=== PATIENT | male | born 2000 | race African-American/Black ===

== ENCOUNTER 2023-08-05 09:10 | Emergency (ER) | payer MEDICAID, SELFPAY ==
--- NOTE | ~2023-08-05 | XR_ITS ---
EXAMINATION: Right foot and left ankle x-ray CLINICAL INFORMATION: Trauma COMPARISON: None. TECHNIQUE: 3 views of the right foot and 3 views of the left ankle FINDINGS: Right foot: Bone alignment is normal. No fracture or dislocation. Normal joint spaces. Normal soft tissues. Left ankle: Bone alignment is normal. No fracture or dislocation. Normal ankle mortise. Normal soft tissues. XR/XR foot RT min 3V IMPRESSION: Unremarkable examination.
--- NOTE | ~2023-08-05 | XR_ITS ---
EXAMINATION: Right foot and left ankle x-ray CLINICAL INFORMATION: Trauma COMPARISON: None. TECHNIQUE: 3 views of the right foot and 3 views of the left ankle FINDINGS: Right foot: Bone alignment is normal. No fracture or dislocation. Normal joint spaces. Normal soft tissues. Left ankle: Bone alignment is normal. No fracture or dislocation. Normal ankle mortise. Normal soft tissues. XR/XR ankle LT min 3V IMPRESSION: Unremarkable examination.
[2023-08-05 09:13] VITALS: BP 130/80; PULSE 84; RESP 16; TEMP 36.8; O2SAT 99; BMI 25.8
--- NOTE | 2023-08-05 09:22 | ED_ITS ---
HPI - Extremity Injury (Lower) General Chief Complaint: Extremity Injury, Lower Stated Complaint: L ankle injury Time Seen by Provider: 08/05/23 09:18 Source: patient and RN notes reviewed Mode of arrival: ambulatory Limitations: no limitations History of Present Illness HPI Narrative: This is a 22-year-old male, with no known medical problems, who presents to the emergency department left ankle pain and right foot. Patient states that last night he was playing manhunt and jumped off a roof, 7-8 feet up, and he landed onto his feet. He continued to play and was able to weight bear. He denies hitting his head or loss of consciousness. States that when he awoke this morning, he had left ankle pain and right foot pain. He states he is only able to partially bear weight on his left ankle secondary to the pain He denies any back pain, headaches, dizziness, blurred vision, chest pain, back pain, shortness of breath, abdominal pain, nausea, vomiting or diarrhea. No other complaints or concerns at this time. MD complaint: ankle injury and foot injury Type of Injury: unknown Place: street/outdoors Severity: moderate Exacerbating factors: weight bearing Context: jumping Associated symptoms: swelling Other symptoms: none Related Data Previous Rx's ?Medication ?Instructions ?Recorded ibuprofen 600 mg tablet 600 mg PO Q6H PRN pain #30 tabs 08/05/23 Allergies Allergy/AdvReac Type Severity Reaction Status Date / Time No Known Allergies Allergy Verified 08/05/23 09:14 Review of Systems Review of Systems: Yes all other systems are reviewed and are negative Constitutional: Constitutional: Reports as per [facility] Social History Social History Advance Directives: No Advance Directives Information Provided: No Physical Exam Vital Signs: Vital Signs: Last Vital Signs Temp 98.0 F 08/05/23 10:11 Pulse 75 08/05/23 10:11 Resp 16 08/05/23 10:11 BP 137/67 08/05/23 10:11 Pulse Ox 97 08/05/23 10:11 O2 Del Method Room Air 08/05/23 10:11 BMI result Body Mass Index 25.8 Const: General: cooperative, comfortable and no acute distress Orientation/consciousness: patient oriented x3 Limitations: no limitations HEENT: Head: Yes normal to inspection, Yes normocephalic and Yes atraumatic Ears: hearing grossly normal bilaterally General nose exam: Normal external nose present Face and sinus: Yes normal facial exam Mouth: Normal oral and palatal mucosa present, oropharynx normal and moist mucous membranes Throat: Yes posterior oropharynx normal Eyes: General: appearance normal, both eyes and all related structures Eyelids: Yes eyelids normal Conjunctivae: conjunctivae normal Sclerae: sclerae normal Pupils: Equal, round and reactive pupils present EOM: EOMs intact bilaterally Neck: Neck: Yes normal visual inspection, Yes full ROM and Yes no lymphadenopathy Lymphatic: no lymphadenopathy noted Chest: Chest palpation & inspection: normal inspection of the chest Resp: Effort & Inspection: normal respiratory effort and able to speak in complete sentences Auscultation: clear to auscultation bilaterally, no crackles, no rales, no rhonchi and no wheezes Cardio: Rate: regular rate Rhythm: regular rhythm Heart sounds: S1 normal heart sound present and S2 normal heart sound present GI: Inspection: Yes normal to inspection Skin: General skin exam: no rashes or lesions noted Trauma: no lacerations or abrasions Wounds: no wounds Neuro: General: patient oriented x3 and moves all extremities Cranial nerves: Yes Equal, round and reactive pupils present Extrem: Other: Left ankle with moderate edema noted to the lateral malleolus. With tenderness palpation along this region. Left foot is nontender. No open wounds or lacerations. DP pulse 2 + Right foot with tenderness palpation along the forefoot, no obvious edema or swelling. Malleoli are nontender. No open wounds or lacerations. DP pulse 2 + General: Yes normal to inspection Right upper extremity: normal to inspection Left upper extremity: normal to inspection Right lower extremity: normal to inspection Left lower extremity: normal to inspection Course Reevaluation(s) Reevaluation #1: X-rays return, no bony abnormality seen. Discussed findings with patient and mother at bedside. Patient's left ankle placed in Mac wrap, and given crutches. Patient encouraged to follow-up with orthopedics if he continues to have pain and symptoms. Given return precautions. He understands agrees with plan. Patient stable for discharge. Time: 09:46 Medical Decision Making Medical Decision Making MDM Narrative: This is a 22-year-old male who presents emergency department with complaints of left ankle pain and right foot pain status post jumping down from a roof top. On arrival, vital signs within normal limits. Has tenderness along the left lateral malleolus and right forefoot. Differential diagnoses include fracture, sprain, strain, contusion. Plan: X-ray left ankle, right foot Differential Diagnosis Differential Diagnoses: The differential diagnosis associated with the presentation includes See above Admission/Observation Consideration of admission/observation: Escalation of care including admission/observation considered Escalation of care including admission/observation considered however given workup today not warranted at this time. Radiology Impression Discussion of test interpretation with radiology: I have reviewed the radiologist's reading. Procedures Orthopedic Splinting/Casting Injury #1: Side: left Lower Extremity Injury Location: ankle Lower Extremity Immobilizer: Mac wrap Other Orthopedic Equipment: crutches Discharge Plan Discharge Clinical Impression: Ankle sprain and strain, Foot sprain Patient Disposition: Home, Self-Care Instructions: Ankle Sprain (ED), Sprain (ED), How to Use an Elastic Bandage (ED), Foot Sprain (ED), R.I.C.E. Treatment (ED) Additional Instructions: Your seen in the emergency department after injuring her left ankle and right foot. Your x-rays do not show any broken bones. You likely sprained your ankle and foot. Please rest, ice, wear Mac wrap, and use crutches as needed. Elevate both of your legs to provide relief. You may alternate between ibuprofen and Tylenol as needed for pain and symptoms. If you continue to have pain and symptoms in your ankle and foot, you may follow-up with Orthopedics, call to make an appointment. If any new or worsening symptoms occur including but not limited to worsening pain, swelling, fevers, chills, chest pain, shortness of breath, please return for re-evaluation. Prescriptions: New ibuprofen 600 mg tablet 600 mg PO Q6H PRN (Reason: pain) Qty: 30 0RF Referrals: [facility] [Provider Group] Stand Alone Forms: Work/School Release Interventions: ED Discharge Assessment Last Done: 08/05/23 10:11 Discharge Date/Time: 08/05/23 10:12 Print Language: Malagasy
[2023-08-05 10:11] VITALS: BP 137/67; PULSE 75; RESP 16; TEMP 36.7; O2SAT 97
== END 2023-08-05 10:12 | disposition home or self-care (01) ==
PROVIDERS: Emergency Provider Student in an Organized Health Care Education/Training Program
DX: S93.402A Sprain of unspecified ligament of left ankle, initial encounter (principal); S96.912A Strain of unspecified muscle and tendon at ankle and foot level, left foot, initial encounter; S93.601A Unspecified sprain of right foot, initial encounter; W17.89XA Other fall from one level to another, initial encounter; Y93.39 Activity, other involving climbing, rappelling and jumping off; Y92.89 Other specified places as the place of occurrence of the external cause; Y99.9 Unspecified external cause status
CPT/HCPCS: 73610; 73630; 99282; 99283